=== PATIENT | male | born 1990 | race Native Hawaiian/Other Pacific Islander ===

== ENCOUNTER 2016-11-22 10:49 | Emergency (ER) | payer OTHER ==
[~2016-11-22] VITALS: Ht 185.4 cm; Wt 72.6 kg
[2016-11-22 11:45] LABS: PLATELET COUNT 219 K/uL (142-355)
[2016-11-22 12:47] LABS: POTASSIUM 4.5 mmol/L (3.6-5.2); SODIUM 131 mmol/L (136-145)
== END 2016-11-22 13:50 | disposition home or self-care (01) ==
LOC: ED 10:49
DX: K52.9 Noninfective gastroenteritis and colitis, unspecified (principal)
CPT/HCPCS: 36415; 80053; 85027; 99283; Q9963